=== PATIENT | female | born 1950 | race Caucasian/White ===

== ENCOUNTER 2023-01-02 13:16 | Outpatient (REF) | payer MEDICARE, BC, SELFPAY ==
[2023-01-02 09:24] LABS: Abs Immature Grans 0.03 10^3/uL (0.0-0.06); Absolute Basophil Count 0.09 10^3/uL (0.0-0.2); Absolute Eosinophil Count 0.52 10^3/uL (0.0-0.7); Absolute Lymphocyte Count 1.99 10^3/uL (1.2-3.4); Absolute Monocyte Count 0.96 10^3/uL (0.1-0.8); Absolute Neutrophil Count 7.01 10^3/uL (1.2-6.7); Basophils % 0.8; Eosinophils % 4.9; HCT 32.6 % (36.0-46.0); HGB 10.5 g/dL (11.2-15.7); Immature Grans % 0.3; Lymphocytes % 18.8; MCH 30.1 pg (27.0-33.0); MCHC 32.2 % (32.0-36.0); MCV 93 fL (80-95); MPV 9.2 fL (8.0-11.0); Monocytes % 9.1; Neutrophils % 66.1; Platelet Count 555 10^3/uL (130-400); RBC 3.49 10^6/uL (3.93-5.22); RDW 16.5 % (11.7-14.6); RDW-SD 56.1 fL
== END 2023-01-02 13:17 | disposition home or self-care (01) ==
LOC: LBN 13:16
PROVIDERS: PCP Family Medicine; Visit Provider Family Medicine
DX: L53.8 Other specified erythematous conditions (principal); Z89.612 Acquired absence of left leg above knee; D64.9 Anemia, unspecified
CPT/HCPCS: 85025

== ENCOUNTER 2023-01-23 06:23 | Outpatient (REF) | payer MEDICARE, BC, SELFPAY ==
[2023-01-23 12:07] LABS: C Diff PCR Negative (Negative)
== END 2023-01-23 06:24 | disposition home or self-care (01) ==
LOC: LBN 06:23
PROVIDERS: PCP Family Medicine; Visit Provider Physician Assistant
DX: M62.81 Muscle weakness (generalized) (principal)
CPT/HCPCS: 87493